=== PATIENT | female | born 1985 | race Caucasian/White ===

== ENCOUNTER 2017-01-14 08:51 | Inpatient (IN) | payer MEDICAID ==
[2017-01-14 09:00] VITALS: BMI 24.4
--- NOTE | 2017-01-14 09:24 | ED PDOC ---
HPI: Abdomen Time Seen by Provider: 01/14/17 09:03 Chief Complaint (Nursing): Abdominal Pain Chief Complaint (Provider): Abdominal pain History Per: Patient History/Exam Limitations: no limitations Onset/Duration Of Symptoms: Mins (x30) Current Symptoms Are (Timing): Still Present Additional Complaint(s): Natalie Helms is a 31 year old 8 week female presenting to the ED for an evaluation of lower abdominal pain occurring for 30 minutes prior to arrival. The patient reports the pain feels like contractions with a cramping feeling in her lower abdomen. She states she has not undergone an ultrasound for her but has an appointment with her mental health advanced practice nurse soon. The patient reports pain in her lower abdomen, back pain, and nausea. She denies vomiting, but has vomited 1 time yesterday, no diarrhea, no fever, and no dizziness. P: 1 A: 0 PMD: Non H Provider : 2 Para: 1 Past Medical History Reviewed: Historical Data, Nursing Documentation, Vital Signs Vital Signs: Last Vital Signs Temp 98.1 F 01/14/17 08:59 Pulse 88 01/14/17 10:20 Resp 17 01/14/17 10:20 BP 129/77 01/14/17 10:20 Pulse Ox 98 01/14/17 11:43 - Medical History PMH: No Chronic Diseases - Surgical History Surgical History: No Surg Hx - Family History Family History: States: Diabetes - Social History Current smoker - smoking cessation education provided: No Ex-Smoker (has not smoked in the last 12 months): No Alcohol: None Drugs: Denies - Home Medications Home Medications: Ambulatory Orders Medication Instructions Recorded RX: No Known Home Med 01/14/17 - Allergies Allergies/Adverse Reactions: Allergies Allergy/AdvReac Type Severity Reaction Status Date / Time No Known Allergies Allergy Verified 01/23/16 14:20 Review of Systems ROS Statement: Except As Marked, All Systems Reviewed And Found Negative Constitutional: Negative for: Fever Gastrointestinal: Positive for: Nausea, Abdominal Pain (lower). Negative for: Vomiting, Diarrhea Musculoskeletal: Positive for: Back Pain Neurological: Negative for: Dizziness Physical Exam - Reviewed Nursing Documentation Reviewed: Yes Vital Signs Reviewed: Yes - Physical Exam Appears: Positive for: Uncomfortable Head Exam: Positive for: ATRAUMATIC, NORMAL INSPECTION, NORMOCEPHALIC Skin: Positive for: Normal Color, Warm, Dry Eye Exam: Positive for: Normal appearance, EOMI, PERRL ENT: Positive for: Normal ENT Inspection Neck: Positive for: Normal, Painless ROM Cardiovascular/Chest: Positive for: Regular Rate, Rhythm, Chest Non Tender. Negative for: Gallop, Murmur Respiratory: Positive for: Normal Breath Sounds. Negative for: Accessory Muscle Use, Respiratory Distress Gastrointestinal/Abdominal: Positive for: Bowel Sounds, Soft, Tenderness (mild tenderness to suprapubic area ) Back: Positive for: Normal Inspection Extremity: Positive for: Normal ROM Neurologic/Psych: Positive for: Alert, Oriented (x3). Negative for: Motor/ Sensory Deficits - Laboratory Results Result Diagrams: 01/14/17 09:00 01/14/17 09:00 - ECG O2 Sat by Pulse Oximetry: 98 (RA) Pulse Ox Interpretation: Normal - Critical Care Total Time (In Min): 30 Medical Decision Making Medical Decision Making: Time: 09:03 Impression: Abdominal pain in Differential diagnosis includes but is not limited to ectopic , threatened , UTI, and ovarian cyst among others Plan: * Type and Screen * Basic Metabolic Panel * Beta HCG, Quant * ED urine * ED urine dipstick * CBC (With Differential) * US OB Transvaginal * Reevaluation Findings: The uterus is anteverted measuring approximately 8.6 x 6.2 x 4.6 cm. Endometrial stripe measures approximately 1.38 cm. Cervix is closed measuring approximately 5.2 cm. . No evidence of intrauterine gestation. There is however a right adnexal gestation with measurements as follows: Gestational sac: MS D = 3.04 cm = 8 weeks 0 days Yolk sac: Not seen pole: 2.68 cm = 9 weeks 3 days Heart motion: 174.81 Average ultrasound age = 8 weeks 5 days +/-0 weeks 4 days SURESH based on average ultrasound age for 04/01/2018 Free fluid is present within the cul de sac. Right adnexal measures approximately 4.7 x 4.8 x 3.2 cm and contains a corpus luteum cyst of measuring 2.6 x 2.2 x 2.2 cm. The right ovary exhibits arterial flow Left ovary measures approximately 3.1 x 2.6 x 1.9 cm and exhibits arterial flow. Impression: Right ectopic as detailed above. Average ultrasound age approximately 8 weeks 5 days +/-0 weeks 4 days. These findings discussed with Dr. Samuel at approximately 10:27 a.m. with written down and read back verification. 1000 Reviewed US with US tech. There is evidence of ectopic with FF in pelvis. 1005 Discussed the case with Dr Martinez who will see patient in ED and prepare for stat OR. 1005 Nursing landscaping supervisor is notified. Dx Ruptured ectopic . Stable hemodynamically. Scribe Attestation: Documented by Milagro Monk, acting as a scribe for Ravindra Samuel MD. Provider Scribe Attestation: All medical record entries made by the Scribe were at my direction and personally dictated by me. I have reviewed the chart and agree that the record accurately reflects my personal performance of the history, physical exam, medical decision making, and the department course for this patient. I have also personally directed, reviewed, and agree with the discharge instructions and disposition. Disposition - Clinical Impression Clinical Impression: Ruptured ectopic - Patient ED Disposition Is Patient to be Admitted: Yes Discussed With DrJacquelyn: Vashti Martinez Counseled Patient/Family Regarding: Studies Performed, Diagnosis - Disposition Disposition Time: 10:10 Condition: FAIR - Pt Status Changed To: Hospital Disposition Of: Inpatient - Admit Certification Admit to Inpatient:: After my assessment, the patient will require hospitalization for at least two midnights. This is because of the severity of symptoms shown, intensity of services needed, and/or the medical risk in this patient being treated as an outpatient. - POA Present On Arrival: None
[2017-01-14 09:28] LABS: BASO % 0.3 % (0.0-2.0); EOS # 0.1 K/uL (0.0-0.7); EOS % 0.8 % (0.0-4.0); HEMATOCRIT 40.2 % (34.0-47.0); LYMPH # 2.6 K/uL (1.0-4.3); LYMPH % 22.5 % (20.0-40.0); MEAN CELL VOLUME 84.8 fl (81.0-99.0); MEAN CORPUSCULAR HEMOGLOBIN 28.8 pg (27.0-31.0); MEAN CORPUSCULAR HGB CONC 33.9 g/dL (33.0-37.0); MEAN PLATELET VOLUME 8.9 fl (7.2-11.7); MONO # 0.7 K/uL (0.0-0.8); MONO % 5.7 % (0.0-10.0); NEUT # 8.2 K/uL (1.8-7.0); NEUT % 70.7 % (50.0-75.0); WHITE BLOOD COUNT 11.5 K/uL (4.8-10.8)
[2017-01-14 09:42] LABS: BLOOD UREA NITROGEN 9 mg/dl (7-17); CALCIUM 9.3 mg/dL (8.4-10.2); CARBON DIOXIDE 20 mmol/L (22-30); CHLORIDE 103 mmol/L (98-107); GFR AFRICAN-AMERICAN > 60; GLUCOSE,RANDOM 104 mg/dL (65-105); POTASSIUM 3.1 MMOL/L (3.6-5.0); SODIUM 137 mmol/l (132-148)
[2017-01-14] MEDS: Lactated Ringer's 1,000 ML IV SCH (10:00)
[2017-01-14] MEDS ORDERED: Potassium CL 10mEq/100ml 100 ML IVPB ONE (10:12)
[2017-01-14] MEDS ORDERED: Potassium Chloride 20 mEq ER Tab PO ONE (10:30)
--- NOTE | 2017-01-14 10:32 | US ---
Pelvic ultrasound dated 01/14/2017. History: Abdominal pain. . Transvaginal sonographic evaluation of the pelvis performed. Correlation made with prior study 01/23/2016. Findings: The uterus is anteverted measuring approximately 8.6 x 6.2 x 4.6 cm. Endometrial stripe measures approximately 1.38 cm. Cervix is closed measuring approximately 5.2 cm. . No evidence of intrauterine gestation. There is however a right adnexal gestation with measurements as follows: Gestational sac: MS D = 3.04 cm = 8 weeks 0 days Yolk sac: Not seen pole: 2.68 cm = 9 weeks 3 days Heart motion: 174.81 Average ultrasound age = 8 weeks 5 days +/-0 weeks 4 days SURESH based on average ultrasound age for 04/01/2018 Free fluid is present within the cul de sac. Right adnexal measures approximately 4.7 x 4.8 x 3.2 cm and contains a corpus luteum cyst of measuring 2.6 x 2.2 x 2.2 cm. The right ovary exhibits arterial flow Left ovary measures approximately 3.1 x 2.6 x 1.9 cm and exhibits arterial flow. Impression: Right ectopic as detailed above. Average ultrasound age approximately 8 weeks 5 days +/-0 weeks 4 days. These findings discussed with Dr. Samuel at approximately 10:27 a.m. with written down and read back verification.
[2017-01-14] MEDS ORDERED: Propofol 10 mg/ml Inj (20 ML) ONE (11:52)
[2017-01-14] MEDS ORDERED: Succinylcholine 200 mg/10 ml Inj IV ONE (11:53)
[2017-01-14] MEDS ORDERED: Bupivacaine 0.5% Inj(30mL) ONE (12:38)
[2017-01-14] MEDS ORDERED: cefTRIAXone (Rocephin) 1 gm Inj ONE (12:39)
[2017-01-14] MEDS ORDERED: Rocuronium 10 mg/ml (5 ml) ONE (12:48)
[2017-01-14] MEDS ORDERED: Lactated Ringer's 1,000 ML IV ONE ×2 (12:52→14:50)
[2017-01-14] MEDS ORDERED: Dexamethasone 4 mg/1 ml ONE (13:20)
[2017-01-14] MEDS ORDERED: Neostigmine Methylsulfate 2 MG/2 ML ML IV ONE (13:45)
[2017-01-14] MEDS ORDERED: Neostigmine Methylsulfate 3mg/3ml Syringe IV ONE (13:45)
[2017-01-14] MEDS: HYDROmorphone 0.5 mg/0.5 ml ISec IVP PRN ×7 (14:44→15:18)
[2017-01-15] MEDS: Lactated Ringer's 1,000 ML IV SCH ×2 (01:03→06:42)
[2017-01-15 06:17] LABS: MEAN CELL VOLUME 85.1 fl (81.0-99.0); MEAN CORPUSCULAR HEMOGLOBIN 29.4 pg (27.0-31.0); MEAN CORPUSCULAR HGB CONC 34.5 g/dL (33.0-37.0); RED CELL DISTRIBUTION WIDTH 13.1 % (11.5-14.5); WHITE BLOOD COUNT 9.6 K/uL (4.8-10.8)
[2017-01-15] MEDS ORDERED: Oxycodone/Acetaminophen 5/325 mg Tab PO PRN (07:14)
[2017-01-15] MEDS: Simethicone 80 mg Chewtab PO PRN ×2 (09:14→15:50)
[2017-01-15] MEDS: Oxycodone/Acetaminophen 5/325 mg Tab PO PRN ×3 (10:24→19:48)
--- NOTE | 2017-01-15 13:55 | CP.PCM.HP ---
<Humberto Casanova - Last Filed: 01/15/17 16:23> History of Present Illness - History of Present Illness History of Present Illness: CC: POD 1, laproscopy converted to laparotomy w/ right salpingectomy 31 year old at approx 8 wk GA, initially presenting to the ED for an evaluation of lower abdominal pain, back pain, dizziness and nausea. Patient was found to have a right ectopic and was taken to the OR, 01/14 for emergency surgery. Patient was seen by bedside this AM, doing well POD 1. Ambulating w/o assistance , using incentive spirometry, pain controlled. Tolerating PO solids and passing gas w/o difficulty. No BM yet. Denies fever, chils, n/v, cp,sob, focal weakness. PMH: denies PSH: denies SH: denies tob, etoh, drugs Allergies: NKDA Meds: none Present on Admission - Present on Admission Any Indicators Present on Admission: No History of DVT/PE: No Past Patient History - Past Medical History & Family History Past Medical History?: No - Past Social History Alcohol: None Drugs: Denies - CARDIAC Hx Cardiac Disorders: No - PULMONARY Hx Respiratory Disorders: No - NEUROLOGICAL Hx Neurological Disorder: No - HEENT Hx HEENT Problems: No - RENAL Hx Chronic Kidney Disease: No - ENDOCRINE/METABOLIC Hx Endocrine Disorders: No - HEMATOLOGICAL/ONCOLOGICAL Hx Blood Disorders: No - INTEGUMENTARY Hx Dermatological Problems: No - MUSCULOSKELETAL/RHEUMATOLOGICAL Hx Musculoskeletal Disorders: No - GENITOURINARY/GYNECOLOGICAL Hx Genitourinary Disorders: No - PSYCHIATRIC Hx Psychophysiologic Disorder: No - SURGICAL HISTORY Hx Surgeries: No - ANESTHESIA Hx Anesthesia: No Meds Allergies/Adverse Reactions: Allergies Allergy/AdvReac Type Severity Reaction Status Date / Time No Known Allergies Allergy Verified 01/14/17 16:45 Physical Exam - Constitutional Appears: Non-toxic, No Acute Distress - Head Exam Head Exam: ATRAUMATIC - Eye Exam Eye Exam: EOMI - ENT Exam ENT Exam: Mucous Membranes Moist - Neck Exam Neck exam: Positive for: Full Rom - Respiratory Exam Respiratory Exam: Clear to Auscultation Bilateral - Cardiovascular Exam Cardiovascular Exam: +S1, +S2 - GI/Abdominal Exam GI & Abdominal Exam: Normal Bowel Sounds, Soft, Tenderness (mild lower abd tenderness, inscision c/d/i). absent: Distended, Guarding, Rigid - Extremities Exam Extremities exam: Positive for: normal inspection. Negative for: calf tenderness, pedal edema - Neurological Exam Neurological exam: Alert, Oriented x3 - Skin Skin Exam: Normal Color, Warm Results - Vital Signs Recent Vital Signs: Last Vital Signs Temp 98.5 F 01/15/17 05:00 Pulse 68 01/15/17 05:00 Resp 20 01/15/17 05:00 BP 103/58 L 01/15/17 05:00 Pulse Ox 98 01/15/17 05:00 - Labs Result Diagrams: 01/15/17 05:20 01/14/17 09:00 Labs: Laboratory Results - last 24 hr 01/15/17 05:20 WBC 9.6 RBC 3.76 L Hgb 11.1 L D Hct 32.0 L MCV 85.1 MCH 29.4 MCHC 34.5 RDW 13.1 Plt Count 269 Assessment & Plan - Assessment and Plan (Free Text) Plan: 31 y/o POD 1, laparoscopy converted to laparotomy w/ right salpingectomy POD 1, laparoscopy converted to laparotomy w/ right salpingectomy - monitor VS - c/w regular diet - incentive spirometry - ambulate PRN - repeat labs: mild anemia 2/2 surgery - pain control - ferrous sulfate BID for anemia - senakot S DVT Ppx - SCDs, frequent ambulation Diet -regular <Leoncio Maldonado - Last Filed: 01/16/17 00:57> Results - Vital Signs Recent Vital Signs: Last Vital Signs Temp 99 F 01/15/17 21:00 Pulse 72 01/15/17 21:00 Resp 18 01/15/17 21:00 BP 108/59 L 01/15/17 21:00 Pulse Ox 98 01/15/17 21:00 - Labs Result Diagrams: 01/15/17 05:20 01/14/17 09:00 Labs: Laboratory Results - last 24 hr 01/15/17 05:20 WBC 9.6 RBC 3.76 L Hgb 11.1 L D Hct 32.0 L MCV 85.1 MCH 29.4 MCHC 34.5 RDW 13.1 Plt Count 269 Assessment & Plan - Assessment and Plan (Free Text) Assessment: S/P laparotomy POD 1 note...Abd pain (incisonal) - pain management postop - Date & Time Date: 01/15/17 Time: 17:00 (Late entry for Jan 15 17:00)
[2017-01-15] MEDS ORDERED: Docusate-Senna 50 mg-8.6 mg Tab PO SCH (22:00)
[2017-01-16] MEDS: Oxycodone/Acetaminophen 5/325 mg Tab PO PRN ×2 (04:04→10:57)
[2017-01-16 09:20] VITALS: TEMP 98.1
[2017-01-16] MEDS: Simethicone 80 mg Chewtab PO PRN (09:40)
--- NOTE | 2017-01-16 10:13 | CP.PCM.HP ---
History of Present Illness - History of Present Illness History of Present Illness: Patient is a with a ruptured ectopic measuring about 8wks 3days on the right side. Patient reports LMP was 18, has not received care in this yet, had severe abdominal pain this morning, no vomiting, no nausea, some vaginal bleeding. Presented to ER and on U/S it was found that there was an adnexal mass with a CRL measuring 8wks 3d with FHR and free fluid. Patient's VSS, hgb=11.9. Patient denies CP, no SOB, no LOC. Present on Admission - Present on Admission Any Indicators Present on Admission: No History of DVT/PE: No History of Uncontrolled Diabetes: No Urinary Catheter: No Decubitus Ulcer Present: No Review of Systems - Cardiovascular Cardiovascular: As Per HPI - Respiratory Respiratory: As Per HPI - Gastrointestinal Gastrointestinal: As Per HPI - Genitourinary Genitourinary: As Per HPI - Reproductive: Female Reproductive:Female: As Per HPI - Menstruation Menstruation: As Per HPI - Musculoskeletal Musculoskeletal: As Per HPI Past Patient History - Past Social History Alcohol: None Drugs: Denies - PSYCHIATRIC Hx Emotional Abuse: No Hx Physical Abuse: No - SURGICAL HISTORY Hx Surgeries: No - ANESTHESIA Hx Anesthesia: No Meds Allergies/Adverse Reactions: Allergies Allergy/AdvReac Type Severity Reaction Status Date / Time No Known Allergies Allergy Verified 01/14/17 16:45 Physical Exam - Constitutional Additional comments: In some pain, otherwise well, Alert, oriented x 3 - Head Exam Head Exam: ATRAUMATIC - Eye Exam Eye Exam: Normal appearance Pupil Exam: PERRL - Respiratory Exam Respiratory Exam: Clear to Auscultation Bilateral, NORMAL BREATHING PATTERN - Cardiovascular Exam Cardiovascular Exam: REGULAR RHYTHM - GI/Abdominal Exam GI & Abdominal Exam: Normal Bowel Sounds Additional comments: mild pain on deep palpation, no rebound, no gaurding, no distendition - Extremities Exam Extremities exam: Positive for: normal inspection - Back Exam Back exam: NORMAL INSPECTION - Neurological Exam Neurological exam: Alert, Oriented x3 Results - Vital Signs Recent Vital Signs: Last Vital Signs Temp 98.1 F 01/14/17 08:59 Pulse 88 01/14/17 10:20 Resp 17 01/14/17 10:20 BP 129/77 01/14/17 10:20 Pulse Ox 98 09/04/17 10:58 - Labs Result Diagrams: 01/15/17 05:20 01/14/17 09:00 Assessment & Plan - Assessment and Plan (Free Text) Assessment: A/P 31 yo with ruptured 8 wk ectopic 1. Patient evaluated and it was discussed with patient based on U/S showing CRL and FHR and free fluid. Hgb = 11.9, VSS, but this is an emergency and patient needs Laparoscopic surgery for removal of ectopic . Patient consented for Diagnostic laparoscopy, possible salpingectomy/oophorectomy, possible laparotomy. 2. IVF running, patient typed and crossed. Patient to proceed to OR when available
[2017-01-16 13:21] VITALS: BP 117/67; PULSE 72; RESP 20; O2SAT 98
--- NOTE | 2017-01-16 15:59 | CP.PCM.DIS ---
Provider - Provider Date of Admission: 01/14/17 10:13 Attending physician: Vashti Martinez MD Time Spent in preparation of Discharge (in minutes): 30 Hospital Course - Lab Results Lab Results: Most Recent Lab Values WBC 9.6 K/uL (4.8-10.8) 01/15/17 05:20 RBC 3.76 Mil/uL (3.80-5.20) L 01/15/17 05:20 Hgb 11.1 g/dL (12.0-16.0) L D 01/15/17 05:20 Hct 32.0 % (34.0-47.0) L 01/15/17 05:20 MCV 85.1 fl (81.0-99.0) 01/15/17 05:20 MCH 29.4 pg (27.0-31.0) 01/15/17 05:20 MCHC 34.5 g/dL (33.0-37.0) 01/15/17 05:20 RDW 13.1 % (11.5-14.5) 01/15/17 05:20 Plt Count 269 K/uL (130-400) 01/15/17 05:20 MPV 8.9 fl (7.2-11.7) 01/14/17 09:00 Neut % (Auto) 70.7 % (50.0-75.0) 01/14/17 09:00 Lymph % (Auto) 22.5 % (20.0-40.0) 01/14/17 09:00 Willacy % (Auto) 5.7 % (0.0-10.0) 01/14/17 09:00 Eos % (Auto) 0.8 % (0.0-4.0) 01/14/17 09:00 Baso % (Auto) 0.3 % (0.0-2.0) 01/14/17 09:00 Neut # 8.2 K/uL (1.8-7.0) H 01/14/17 09:00 Lymph # 2.6 K/uL (1.0-4.3) 01/14/17 09:00 Willacy # 0.7 K/uL (0.0-0.8) 01/14/17 09:00 Eos # 0.1 K/uL (0.0-0.7) 01/14/17 09:00 Baso # 0.0 K/uL (0.0-0.2) 01/14/17 09:00 PT 11.0 Seconds (9.8-13.1) 01/14/17 09:55 INR 1.1 (0.9-1.2) 01/14/17 09:55 APTT 34.0 Seconds (25.6-37.1) 01/14/17 09:55 Sodium 137 mmol/l (132-148) 01/14/17 09:00 Potassium 3.1 MMOL/L (3.6-5.0) L 01/14/17 09:00 Chloride 103 mmol/L (98-107) 01/14/17 09:00 Carbon Dioxide 20 mmol/L (22-30) L 01/14/17 09:00 Anion Gap 17 (10-20) 01/14/17 09:00 BUN 9 mg/dl (7-17) 01/14/17 09:00 Creatinine 0.4 mg/dL (0.7-1.2) L 01/14/17 09:00 Est GFR ( Amer) > 60 01/14/17 09:00 Est GFR (Non-Af Amer) > 60 01/14/17 09:00 Random Glucose 104 mg/dL (65-105) 01/14/17 09:00 Calcium 9.3 mg/dL (8.4-10.2) 01/14/17 09:00 Beta HCG, Quant > 94461.00 mIU/mL 01/14/17 09:00 Blood Type A POSITIVE 01/14/17 09:00 Antibody Screen Negative 01/14/17 09:00 BBK History Checked Patient has bt 01/14/17 09:00 - Hospital Course Hospital Course: 31 year old at approx 8 wk GA, initially presenting to the ED for an evaluation of lower abdominal pain, back pain, dizziness and nausea. Patient was found to have a right ectopic and was taken to the OR, 01/14 for emergency surgery. Patient was seen by bedside today, doing well POD 2. Ambulating w/o assistance, mild pain well controlled with meds. States good appetite, slept well last night , NOrmal BM this morning. No urinary symptoms. Denies fever, chils, n/v, cp,sob , weakness. Home meds: Senokot 8.6 mg 1 tab at bed time Percocet 5/325 mg 1 tab q6 if moderate pain Motrin 600mg q6 if mild pain. Ferrous sulfate 325mg 1 po BID Discharge Exam - Head Exam Head Exam: ATRAUMATIC, NORMOCEPHALIC - Eye Exam Eye Exam: EOMI, Normal appearance, PERRL - ENT Exam ENT Exam: Mucous Membranes Moist - Respiratory Exam Respiratory Exam: Clear to PA & Lateral. absent: Rales, Rhonchi, UNREMARKABLE - Cardiovascular Exam Cardiovascular Exam: REGULAR RHYTHM, +S1, +S2 - GI/Abdominal Exam GI & Abdominal Exam: Normal Bowel Sounds, Soft Additional comments: Surgical wound clean, healing well, no erythema, mild tenderness to palpation. - Extremities Exam Extremities exam: normal inspection - Skin Skin Exam: Dry, Normal Color, Warm Discharge Plan - Discharge Medications Prescriptions: Ferrous Sulfate [Feosol] 325 mg PO BID #60 tab oxyCODONE/Acetaminophen [Percocet 5/325 mg Tab] 1 tab PO Q4 PRN #20 tab PRN Reason: Pain, Moderate (4-7) - Follow Up Plan Condition: IMPROVED Disposition: HOME/ ROUTINE Patient education suggested?: Yes
--- NOTE | 2017-01-17 22:58 | OP ---
PROCEDURE DATE: 01/14/2017 PREOPERATIVE DIAGNOSIS: Right ruptured ectopic. POSTOPERATIVE DIAGNOSIS: Right tubal noted to be leaking. PROCEDURE: Attempted diagnostic laparoscopy, converted to laparotomy with right salpingectomy for removal of ectopic procedure. SURGEON: Vashti Martinez MD SIFTING OPERATOR: Olman Vance MD TYPE OF ANESTHESIA: General. ANESTHESIA ADMINISTERED BY: Dr. Alex. FINDINGS: Right tubal with moderate pneumoperitoneum. IV FLUID INTAKE: Total input 900 mL. ESTIMATED BLOOD LOSS: 25 mL. URINE OUTPUT: 125 mL, clear. COMPLICATIONS: None. SPECIMEN: Right fallopian tube with ectopic . CONDITION: Stable. INDICATION: This is a 31-year-old G2, P1-0-0-1, about 8 weeks by LMP and confirmed by ultrasound in the emergency room which showed a crown rump length and a heart rate present in the . The was to be contained next to the adnexa. The patient presented to the emergency room this morning with severe abdominal pain and on and off vomiting. The patient initially was , had not had any care up to this point. On ultrasound, it was noted that the patient had moderate amount of what looked to be free fluid. So it was determined that this was a ruptured ectopic . The patient's vital signs and hemoglobin were stable, however, but the patient was in severe abdominal pain. The patient was given IV morphine as well as examined by myself, and it was determined that the patient would need emergency surgery to evacuate ruptured ectopic. The patient was advised of risks and benefits of procedure of a diagnostic lap before removal of ectopic , possible salpingectomy, possible oophorectomy, and possible laparotomy. The patient verbalized understanding of risks and benefits of surgery and signed informed consent. DESCRIPTION OF PROCEDURE: The patient was taken to the OR, IV fluids were running and SCDs were placed bilaterally to lower extremities. General anesthesia was obtained without difficult. The patient was placed in the dorsal lithotomy position with Edinson type stirrups, the knee bent with 30 degree angle. Examination under anesthesia revealed a normal sized anteverted uterus and a right adnexal mass. The patient was prepped and draped in normal sterile fashion. A Hustno catheter was inserted, clear urine was noted. A weighted speculum was placed in the posterior fornix of the vagina. The anterior lip of the cervix was grasped with a single-tooth tenaculum and a uterine manipulator was introduced. We used 2 Allis clamps to elevate the base of the umbilicus. A vertical skin incision was made across the umbilical fold and the Veress needle was introduced. Water drop test ensured that it looked to be appropriate intraabdominal plafond and then was introduced to a pressure less than 50 mhz. We insufflated the intraabdominal cavity. We then used a 10 mm trocar to insert into the abdomen. Intraabdominal survey showed that we were not in the intraabdominal cavity. We then removed the 10 mm trocar and again attempted insufflation of the intraabdominal cavity appropriately. We attempted again with a bariatric size 10 mm trocar and found again continued difficulty to enter the intraabdominal cavity appropriately to survey the intraabdominal cavity. At this point, because we knew that the patient was actively bleeding, we decided to covert the case to a laparotomy. We removed the instruments from the umbilicus. We then made a Pfannenstiel skin incision with a scalpel and carried the incision to the underlying layer of fascia with the scalpel and Bovie. The fascia was incised in the midline. The incision was extended laterally with the Bovie. Lien clamps were used to tent up the inferior and superior aspect of the incision. We dissected out the underlying pyramidalis muscles inferiorly and also in the similar fashion superiorly off of the rectus abdominis muscles. The muscles were bluntly at the midline. The peritoneum was identified, grabbed with pickups and entered bluntly. The incision was extended superiorly and inferiorly with good visualization. We were able to pack the bowel with moist ring laps. We then found that there was a moderate amount of blood in the abdominal cavity and in fact the right fallopian tubes contained the ectopic which was actively leaking and had not yet ruptured. We then used a LigaSure device and resected entirely the right fallopian tube with ectopic contained within the tubes. The area of resection appeared to be hemostatic. We removed all clots in the intraabdominal cavity, irrigated, and we again inspected the cavity as well as the area of cauterization which appeared to be hemostatic. We closed the peritoneum with 2-0 Monocryl and imbricated the muscle with the same stitch. Fascia was closed with 0 Vicryl. The small bleeders and subcutaneous fat were cauterized with the Bovie and the skin was closed with 4-0 Monocryl. After we closed the muscle, we inspected the area around the umbilicus and reinforced on the underside with 0 Vicryl stitches, so the fascia was indeed reapproximated. Sponge, lap, and needle counts were correct x4. The patient was awoken in stable condition and taken to recovery. She was to be discharged from the hospital in 1 to 2 days depending on recovery and then to follow up in the office in 1 to 2 weeks. There were no other complications. We converted the case from laparoscopy to laparotomy. One dose of Ancef was given. Dr. Vance assisted in all aspects of surgery including cutting of sutures, retraction and exposure, and suturing. Vashti Martinez MD
--- NOTE | 2017-01-18 18:42 | CARD ---
APPROVED REPORT EKG Measurement Heart [id number] CO [id number] <Conclusion> Normal sinus rhythm Normal ECG
== END 2017-01-16 17:35 | disposition home or self-care (01) | DRG 378 ==
LOC: H.ER 08:51 → H.ERHOLD 10:13 → H.PEDS 16:01
PROVIDERS: ADMIT Obstetrics & Gynecology; ATTEND Obstetrics & Gynecology
PROC: 10T20ZZ Resection of Products of Conception, Ectopic, Open Approach (ICD-10-PCS; 2017-01-14)
PROC: 0UT50ZZ Resection of Right Fallopian Tube, Open Approach (ICD-10-PCS; principal; 2017-01-14 12:45)
DX: O00.10 Tubal pregnancy without intrauterine pregnancy (principal); D50.0 Iron deficiency anemia secondary to blood loss (chronic); Z3A.08 8 weeks gestation of pregnancy; Z53.31 Laparoscopic surgical procedure converted to open procedure